=== PATIENT | female | born 2000 | race Two or more races ===

== ENCOUNTER 2022-02-04 06:18 | Inpatient (IN) | payer OTHER ==
[~2022-02-04] VITALS: Ht 154.9 cm; Wt 68.5 kg
[2022-02-04] MEDS: TERBUTALINE SULFATE 1 MG/ML 1ML VIAL SC SCH ×3 (07:45→09:42)
[2022-02-04] MEDS ORDERED: BETAMETHASONE ACET (30mg/5ml) 5ml Vial 6mg/ml IM ONE (10:00)
[2022-02-04] MEDS ORDERED: BETAMETHASONE ACET (30mg/5ml) 5ml Vial 6mg/ml ONE (10:12)
[2022-02-04] MEDS ORDERED: WITCH HAZEL-GLYCERIN PAD TOP PRN (10:15)
[2022-02-04] MEDS ORDERED: LACTATED RINGER'S 1,000 ML IV SCH (10:15)
[2022-02-04] MEDS ORDERED: PHISODERM TOP SOLN 240ML BTL TOP PRN (10:15)
[2022-02-04] MEDS ORDERED: DERMOPLAST 60ML BOTTLE TOP PRN (10:15)
[2022-02-04] MEDS ORDERED: LIDOCAINE 2%HCL (LOCAL ANESTH.) INJ 10ml MDV IJ PRN (10:15)
[2022-02-04] MEDS ORDERED: LACT. RINGERS/OXYTOCIN 20UNITS 500 ML IV ONE ×2 (10:30→11:00)
[2022-02-04] MEDS ORDERED: miSOPROStol 100 mcg TAB PR PRN (10:45)
[2022-02-04] MEDS ORDERED: CARBOPROST TROMETHAMINE 250 MCG/1ML VIAL IM ONE (10:45)
[2022-02-04] MEDS ORDERED: METHYLERGONOVINE MALEATE 0.2 MG/ML AMP IM PRN (10:45)
[2022-02-04] MEDS ORDERED: miSOPROStol 100 mcg TAB SL PRN (10:45)
[2022-02-04 10:57] LABS: Eosinophils # (auto) 0 10 ^3/uL (0-0.8); Neutrophils # (auto) 10.7 10 ^3/uL (1.6-8.6); Red Cell Distribution Width 15.3 % (11.8-14.3)
[2022-02-04 10:58] LABS: Basophils # (auto) 0 10 ^3/uL (0-0.2); Basophils % (auto) 0.2 % (0.0-2.0); Hematocrit 29.9 % (36.0-46.0); Hemoglobin 9.5 g/dL (12.2-16.2); Lymphocytes # (auto) 0.8 10 ^3/uL (0.4-5.4); Lymphocytes % (auto) 6.3 % (10.0-50.0); Mean Corpuscular Hemoglobin 23.8 pg (28.0-32.0); Mean Corpuscular Hgb Conc. 31.8 g/dL (32.0-36.0); Mean Corpuscular Volume 74.7 fL (80.0-100.0); Monocytes # (auto) 0.5 10 ^3/uL (0-1.3); Monocytes % (auto) 4.1 % (0.0-12.0); Neutrophils % (auto) 89.4 % (37.0-80.0)
[2022-02-04] MEDS ORDERED: DIPHENOXYLATE W/ATROPINE 2.5 MG TAB PO SCH (11:02)
[2022-02-04 11:04] LABS: INR 0.94 (0.9-1.15); Partial Thromboplastin Time 26.7 sec (23.6-33.0)
[2022-02-04 11:08] LABS: Albumin 2.6 g/dL (3.4-5.0)
[2022-02-04 11:12] LABS: BUN/Creatinine Ratio 10.7; Bilirubin, Total 0.2 mg/dL (0.2-1.0); Total Protein 6.7 g/dL (6.4-8.2); Uric Acid 4.1 mg/dL (2.6-6.0)
[2022-02-04] MEDS ORDERED: PENICILLIN G POT 5MIL/D5 50ML 50 ML IV ONE ×2 (11:15→11:16)
[2022-02-04] MEDS ORDERED: ONDANSETRON ODT 4 MG TAB PO PRN (13:30)
[2022-02-04] MEDS ORDERED: IBUPROFEN 600 MG TAB PO PRN (13:30)
[2022-02-04] MEDS ORDERED: ACETAMINOPHEN 325 MG TAB PO PRN (13:30)
[2022-02-04 15:00] VITALS: BP 121/65
[2022-02-04 15:02] LABS: Alcohol, Urine < 3.0 mg/dL (0-10); Amphetamine Screen, Urine NEGATIVE (NEGATIVE); Barbiturate Scree,Urine NEGATIVE (NEGATIVE); Benzodiazephine Screen, Urine NEGATIVE (NEGATIVE); Cannabinoid Screen, Urine NEGATIVE (NEGATIVE); Cocaine Screen, Urine NEGATIVE (NEGATIVE); Opiate Scree,Urine NEGATIVE (NEGATIVE); Phencyclidine Screen, Urine NEGATIVE (NEGATIVE)
[2022-02-04 15:03] LABS: Urine Bacteria FEW /hpf (None Seen); Urine Blood 3+ /uL (Negative); Urine Budding Yeast MODERATE /hpf (None Seen); Urine Mucus FEW (None Seen); Urine Specific Gravity 1.026 (1.001-1.035); Urine WBC 260 /hpf (0 - 5); Urine WBC Clumps PRESENT /hpf (None Seen)
[2022-02-04] MEDS ORDERED: PENICILLIN G POTASSIUM 2,500,000 UNITS in D5W 5% 50 ML IV SCH (15:30)
[2022-02-04 16:00] VITALS: BP 121/65
[2022-02-04 19:30] VITALS: BP 119/73
[2022-02-04 23:30] VITALS: BP 129/79
[2022-02-05 03:00] VITALS: BP 110/76
[2022-02-05 06:06] LABS: Rubella Antibodies, IgG 3.34 index (Immune >0.99)
[2022-02-05 06:45] VITALS: BP 121/81
[2022-02-05 07:06] LABS: RPR Non Reactive (Non Reactive)
[2022-02-05 11:29] VITALS: BP 119/83
[2022-02-05 15:09] VITALS: BP 120/70
[2022-02-05 19:30] VITALS: BP 106/80
== END 2022-02-05 22:20 | disposition home or self-care (01) | DRG 560 ==
LOC: LDRP 06:18 → OBSVTOIN 09:55 → LDRP 10:35
PROVIDERS: ADMIT Obstetrics & Gynecology; ATTEND Obstetrics & Gynecology
PROC: 10E0XZZ Delivery of Products of Conception, External Approach (ICD-10-PCS; principal; 2022-02-04)
PROC: 3E0DXGC Introduction of Other Therapeutic Substance into Mouth and Pharynx, External Approach (ICD-10-PCS; 2022-02-04)
DX: O41.03X0 Oligohydramnios, third trimester, not applicable or unspecified (principal); Z37.1 Single stillbirth; O60.14X0 Preterm labor third trimester with preterm delivery third trimester, not applicable or unspecified; Z20.822 Contact with and (suspected) exposure to COVID-19; Z3A.35 35 weeks gestation of pregnancy
CPT/HCPCS: 36415; 59025; 59409; 76805; 76818; 80053; 80307; 81001; 81002; 84112; 84550; 85025; 85610; 85730; 86592; 86703; 86762; 86850; 86900; 86901; 87340; 94760; 96360; 96361; 96365; 96366; 96372; G0378; J2001; J2540; J2590; J7060

== ENCOUNTER 2023-03-08 21:00 | Emergency (ER) | payer MEDICAID, OTHER ==
[~2023-03-08] VITALS: Ht 154.9 cm; Wt 59.0 kg
[2023-03-08] MEDS ORDERED: IBUPROFEN 800 MG TAB PO ONE (22:30)
[2023-03-08] MEDS ORDERED: IBUP-1456 PO (22:31)
[2023-03-08] MEDS ORDERED: AMOX500T86 PO (22:31)
[2023-03-08 22:48] VITALS: BP 131/81; PULSE 98; RESP 18; TEMP 98.2; O2SAT 99
== END 2023-03-08 22:50 | disposition home or self-care (01) ==
LOC: ER 21:00
DX: K04.7 Periapical abscess without sinus (principal)

== ENCOUNTER 2024-05-01 16:32 | Emergency (ER) | payer MEDICAID ==
[~2024-05-01] VITALS: Ht 154.9 cm; Wt 57.6 kg
[~2024-05-01 16:32] MED LIST: AMOX500T86 PO; IBUP-1456 PO
[2024-05-01 16:53] VITALS: BP 121/74; PULSE 63; RESP 17; O2SAT 100
[2024-05-01] MEDS ORDERED: METOCLOPRAMIDE HCL 5MG/ml INJ 2ml VIAL IM ONE (17:30)
[2024-05-01] MEDS ORDERED: HYDROcodone-ACET 5/325MG TAB PO ONE (17:30)
== END 2024-05-01 18:25 | disposition left against medical advice (07) ==
LOC: ER 16:32
DX: R51.9 Headache, unspecified (principal)